=== PATIENT | female | born 1970 | race Caucasian/White ===

== ENCOUNTER → 2018-07-16 | Outpatient (CLI) | payer OTHER | LOC: EMCIMAGING 12:51 | PROVIDERS: ATTEND Family Medicine | DX: Z12.31 Encounter for screening mammogram for malignant neoplasm of breast (principal); R92.0 Mammographic microcalcification found on diagnostic imaging of breast | CPT/HCPCS: 77067-PN ==

== ENCOUNTER → 2018-07-18 | Outpatient (CLI) | payer OTHER | LOC: FIMAGING 15:00 | PROVIDERS: ATTEND Family Medicine | DX: R92.0 Mammographic microcalcification found on diagnostic imaging of breast (principal) ==